=== PATIENT | female | born 1970 | race Caucasian/White ===

== ENCOUNTER 2021-03-06 13:00 | Outpatient (RCR) | payer OTHER, SELFPAY | END 2021-06-25 10:01 | disposition home or self-care (01) | LOC: HO.PT 13:00 | PROVIDERS: PCP Internal Medicine; Visit Provider Obstetrics & Gynecology Gynecology | DX: N81.89 Other female genital prolapse (principal) | CPT/HCPCS: 97110; 97112; 97140; 97162 ==